=== PATIENT | female | born 1935 | race Caucasian/White ===

== ENCOUNTER 2018-04-11 14:24 | Inpatient (IN) | payer MEDICARE, BC ==
--- NOTE | 2018-04-11 15:21 | RAD ---
CHEST 1 VIEW: Date: 04/11/18 HISTORY: Cough. FINDINGS: No comparison. The cardiac silhouette is unremarkable. Pulmonary vasculature upper limits of normal. Patchy infiltra te projects over each lung base. Mediastinum midline. No evidence of pneumothorax. IMPRESSION: Patchy bibasilar infiltrates. Given the lack of pulmonary edema elsewhere, clinical correlation regar ding other signs and symptoms of bibasilar pneumonitis is required. Please consider close follow-up w ith upright PA and lateral views of the chest when patient can undergo that exam. POS: [facility]
[2018-04-11 15:23] LABS: Hemoglobin 14.7 g/dL (12.0-16.0); Mean Corpuscular HGB CONC 32.9 g/dL (32.0-36.0); Mean Corpuscular Hemoglobin 31.9 pg (27.0-31.0); Mean Platelet Volume 7.9 fL (7.4-10.4); Platelet Count 287 thou/uL (130-400); RBC Distribution Width 12.4 % (11.5-14.5); White Blood Cell (WBC) Count 15.5 thou/uL (4.8-10.8)
[2018-04-11 15:40] LABS: CKMB 0.6 ng/mL (0-6.6)
[2018-04-11 15:42] LABS: Band 11 % (5-11); Lymphocytes 26 % (21-51); MDiff Complete? YES; Monocytes 3 % (0-10); Neutrophil 60 % (42-75); PLT Morphology Comment Appears Adequate
[2018-04-11 15:55] LABS: ALT (SGPT) 25 U/L (8-55); AST (SGOT) 39 U/L (5-34); Albumin 3.5 g/dL (3.4-4.8); Alkaline Phosphatase 97 U/L (40-150); Anion Gap 14 mmol/L (10-20); BUN (Urea Nitrogen) 24 mg/dL (9.8-20.1); Bilirubin, Total 1.1 mg/dL (0.2-1.2); CK (CPK) 28 U/L (29-168); Calc. Creatinine Clearance 0 mL/min (70-130); Calcium 9.7 mg/dL (7.8-10.44); Carbon Dioxide 22 mmol/L (23-31); Chloride 95 mmol/L (98-107); Estimated GFR-MDRD 46; Globulin 4.1 g/dL (2.4-3.5); Glucose 141 mg/dL (83-110); Potassium 5.4 mmol/L (3.5-5.1); Protein, Total 7.6 g/dL (6.0-8.3); Sodium 126 mmol/L (136-145)
[2018-04-11] MEDS ORDERED: Sodium Chloride 0.9% 1,000 ML IV SCH (20:15)
[2018-04-11 20:41] VITALS: BMI 31.1
[2018-04-11] MEDS ORDERED: Acetaminophen 650 MG Suppository PR PRN (20:41)
[2018-04-11] MEDS ORDERED: Ondansetron ODT 4 MG TAB PO PRN (20:41)
[2018-04-11] MEDS ORDERED: Ondansetron HCl/PF 4 MG/2 ML Vial IVP PRN (20:41)
[2018-04-11] MEDS ORDERED: Bisacodyl 5 MG TAB PO PRN (20:41)
[2018-04-11] MEDS: levETIRAcetam 500 MG TAB PO SCH (21:38)
[2018-04-11] MEDS: Docusate 100 MG CAP PO SCH (21:38)
[2018-04-11] MEDS: Acetaminophen 325 MG TAB PO PRN (21:38)
[2018-04-11] MEDS: Apixaban 5 MG TAB PO SCH (21:38)
[2018-04-11] MEDS: Sodium Chloride 0.9% 1,000 ML IV SCH (21:39)
--- NOTE | 2018-04-11 22:46 | HP ---
PRIMARY CARE PHYSICIAN: Anastacio Flynn MD CHIEF COMPLAINT: Cough and weakness. HISTORY OF PRESENT ILLNESS: This is an 82-year-old white female who lives at she [facility], who reports that she has been feeling bad for the last 4-5 days. She initially had some mild shortness of breath onset followed by cough and just feeling bad overall. Cough has been progressiv e and now productive of yellow sputum. She had worsening fatigue and some generalized body aching. The patient eventually presented to the emergency room. In the ER, she was found to be tachycardic u p to 120 with an O2 sat of 92% on room air. The patient improved with oxygen. She had a chest x-ray done, which showed bilateral bibasilar infiltrates. She was also found to be tachypneic. The patie nt did get fluid bolus of 30 mL per kilogram in the emergency room along with Levaquin and oxygen and is feeling better. Heart rate is now down to about 100. She is being admitted for [facility] pneumonia. PAST MEDICAL HISTORY: History taken from the patient; however, she cannot completely remember all of her medical problems. So, I am taking information from her medication list from [facility] as well. 1. Atrial fibrillation, likely chronic, though the patient does not remember this one, since she is on Eliquis. 2. Hypertension. 3. Hypothyroidism. 4. Benign brain tumor, status post resection, on chronic antiepileptics. 5. Stroke quite a few years ago. No longer ambulatory. PAST SURGICAL HISTORY: 1. Benign brain tumor resection. 2. x2. 3. Partial hysterectomy. 4. Tonsillectomy. 5. Appendectomy. 6. Cholecystectomy. SOCIAL HISTORY: The patient denies tobacco, alcohol, or illicit drug use. She lives at [facility]. She has 2 daughters and a son. Her son lives in town and is her medical power of assistant attorney general. His name is Carlton Pham. ALLERGIES: 1. PENICILLIN. 2. SULFA. 3. MACROBID. 4. DECLOMYCIN. 5. CODEINE SULFATE. CURRENT MEDICATIONS: 1. Acidophilus 2 caps daily. 2. Allyn 180 mg daily. 3. Cranberry 450 mg daily. 4. Diphenhydramine 25 mg at night as needed for sleep. 5. Dulcolax suppository 10 mg as needed. 6. Eliquis 5 mg twice a day. 7. Flonase 2 sprays in each nostril daily. 8. Imodium A-D 2 mg as needed for diarrhea. 9. Keppra 500 mg twice a day. 10. Lisinopril 10 mg daily. 11. Melatonin 3 mg daily. 12. Metoprolol tartrate 25 mg twice a day. 13. Sodium chloride 1 gram orally daily. 14. Synthroid 100 mcg daily. 15. Timolol 1 drop in each eye 2 times a day. 16. Tramadol 50 mg 3 times a day as needed. 17. Travatan 1 drop in each eye daily. REVIEW OF SYSTEMS: Constitutional: She has had some chills. No fever. Eyes: No double vision or blurred vision. ENT: No congestion, drainage. She has a mild sore throat. Cardiovascular: No aundrea st pain. No palpitations or racing heart. Pulmonary: See HPI. Gastrointestinal: No abdominal moose n. She had nausea and vomiting once during breakfast, but none since. No diarrhea or constipation. Genitourinary: The patient is chronically incontinent of urine. No changes in her urinary habit. No dysuria or hematuria. Musculoskeletal: She has some generalized muscle aches, especially since l arnold in the bed in the emergency room, but otherwise no focal problems. Skin: No rashes or other le sions she has noted. Neurologic: No numbness, tingling, or focal weakness. PHYSICAL EXAMINATION: VITAL SIGNS: Blood pressure 114/66, pulse 100, respiratory rate 28, temperature 98.4, O2 sat 95% on 2 liters. GENERAL: This is a well-developed, obese, white female in no acute distress on oxygen. She does not look to be breathing 28 breaths per minute to me, more about 22. HEENT: Pupils equal, round, and reactive to light. Oropharynx is clear without lesions, erythema, o r exudate. NECK: Supple. No lymphadenopathy. No thyroid nodules or enlargement. No JVD. HEART: Regular rate and rhythm. No murmurs, rubs, or gallops. LUNGS: She has some coarse breath sounds and few crackles in bilateral bases with decent air movemen t throughout. ABDOMEN: Soft, nontender to palpation. Normoactive bowel sounds. No hepatosplenomegaly or other ma sses. EXTREMITIES: No clubbing, cyanosis, or edema. She does have some deformity of the ankles, little bi t of foot drop, it looks like, consistent with a history of not having ambulated for quite some time. PSYCHIATRIC: Alert and oriented x3. Normal mood and affect. LABORATORY DATA: CBC with a white blood cell count of 15,000 and the rest is normal. Complete metab olic panel notable for sodium of 126, potassium of 5.4, carbon dioxide of 22 with a normal anion gap. BUN of 24; creatinine of 1.14, which is up from 0.79 in December of this year. Glucose of 141. La ctic acid was negative at 1.3. AST was 39. Creatinine kinase was low at 28. The rest was normal in the complete metabolic panel. Brain natriuretic peptide is normal at 75. Cardiac marker set negati ve x1. Chest x-ray: I did review the chest x-ray done in the emergency room along with the radiologist's re port. This does show some patchy bibasilar infiltrates consistent with bibasilar pneumonitis. No ot her significant abnormalities. EKG: I did review the EKG done in the emergency room. It does show sinus tachycardia with some abnormality of the P waves, but no atrial fibrillation on my read. ASSESSMENT AND PLAN: 1. Community-acquired pneumonia. The patient has got Levaquin in the emergency room along with IV f luids. We will continue these in the hospital and give fluids and nebs along with oxygen. 2. Sepsis without any evidence of severe organ dysfunction. I am treating with fluids and we will m onitor her on telemetry. 3. Possible history of atrial fibrillation. We will continue Eliquis and put her on telemetry. 4. Hypertension. Resume home medications. 5. Acute renal failure, likely prerenal. It should resolve with fluids and not bad enough that we n eed to stop her ÓSCAR inhibitor at this time. 6. Gastrointestinal prophylaxis. Put the patient on Pepcid twice a day. 7. Deep venous thrombosis prophylaxis. Continue the patient's Eliquis. 8. Code status: I discussed with the patient. She states that she is currently FULL CODE, but she would want people to try too long to re-live her; and her medical decision maker is her son, Carlton Pham.
[2018-04-12] MEDS ORDERED: Levothyroxine Sodium 100 MCG TAB PO SCH (06:00)
[2018-04-12] MEDS: Sodium Chloride 0.9% 1,000 ML IV SCH ×2 (06:32→15:37)
[2018-04-12 07:55] LABS: #Eosinphils 0.1 thou/uL (0.0-0.7); #Lymphocytes 1.8 thou/uL (1.20-3.40); #Monocytes 1.4 thou/uL (0.11-0.59); #Neutrophils 11.2 thou/uL (1.40-6.50); %Basophils 0.1 % (0.0-1.0); %Eosinophils 0.9 % (0.0-10.0); %Lymphocytes 12.6 % (21.0-51.0); %Monocytes 9.7 % (0.0-10.0); %Neutrophils 76.8 % (42.0-75.0); Mean Corpuscular HGB CONC 32.7 g/dL (32.0-36.0); Mean Corpuscular Hemoglobin 32.5 pg (27.0-31.0); Mean Corpuscular Volume 99.2 fl (81.0-99.0); Mean Platelet Volume 7.9 fL (7.4-10.4); Platelet Count 262 thou/uL (130-400); RBC Distribution Width 12.3 % (11.5-14.5); Red Blood Cell (RBC) Count 4.29 mill/uL (4.20-5.40); White Blood Cell (WBC) Count 14.6 thou/uL (4.8-10.8)
[2018-04-12 08:18] LABS: Anion Gap 14 mmol/L (10-20); BUN (Urea Nitrogen) 15 mg/dL (9.8-20.1); Calc. Creatinine Clearance 72 mL/min (70-130); Carbon Dioxide 21 mmol/L (23-31); Chloride 102 mmol/L (98-107); Estimated GFR-MDRD 67; Glucose 104 mg/dL (83-110); Sodium 133 mmol/L (136-145)
[2018-04-12] MEDS ORDERED: Famotidine 20 MG TAB PO SCH (09:00)
[2018-04-12] MEDS: Sodium Chloride 1 GM TAB PO SCH (09:00)
[2018-04-12] MEDS: Docusate 100 MG CAP PO SCH ×2 (09:00→21:37)
[2018-04-12] MEDS: Fluticasone Propionate Nasal Spray 16 gm Bottle NASAL SCH (09:00)
[2018-04-12] MEDS ORDERED: Prevnar 13-Val Conj/PF 0.5 ML SYRINGE IM ONE (09:00)
[2018-04-12] MEDS: Apixaban 5 MG TAB PO SCH ×2 (09:00→21:28)
[2018-04-12] MEDS: levETIRAcetam 500 MG TAB PO SCH ×2 (09:00→21:29)
--- NOTE | 2018-04-12 09:52 | PDOC.PN ---
- Subjective Encounter Start Date: 04/12/18 Encounter Start Time: 09:49 Subjective: miserable, cough, sob, weak - Objective Resuscitation Status: Resuscitation Status FULL:Full Resuscitation MAR Reviewed: Yes Vital Signs & Weight: Vital Signs (12 hours) Temp Pulse Resp BP Pulse Ox 04/12/18 04:17 94 L 04/12/18 04:00 97.9 F 116 H 22 H 141/64 H 94 L 04/11/18 23:30 98.8 F 88 24 H 108/54 L 94 L 04/11/18 23:00 95 Weight Weight 194 lb 3.2 oz I&O: 04/11/18 04/12/18 04/13/18 06:59 06:59 06:59 Intake Total 1670 Balance 1670 Result Diagrams: 04/12/18 07:42 04/12/18 07:42 Phys Exam - Physical Examination Neck: no JVD rhonchi ant, rales bilateral post lower lung avila Cardiovascular: RRR, no significant murmur Gastrointestinal: soft, positive bowel sounds Musculoskeletal: no edema, pulses present Dx/Plan (1) PNA (pneumonia) Code(s): J18.9 - PNEUMONIA, UNSPECIFIED ORGANISM Status: Acute Qualifiers: Pneumonia type: due to unspecified organism Laterality: bilateral Lung location: lower lobe of lung Qualified Code(s): J18.1 - Lobar pneumonia, unspecified organism (2) Acute respiratory failure with hypoxia Code(s): J96.01 - ACUTE RESPIRATORY FAILURE WITH HYPOXIA Status: Acute (3) Atrial fibrillation with tachycardic ventricular rate Code(s): I48.91 - UNSPECIFIED ATRIAL FIBRILLATION Status: Acute (4) Anticoagulant long-term use Code(s): Z79.01 - LITERATURE PROFESSOR (CURRENT) USE OF ANTICOAGULANTS Status: Chronic (5) HTN (hypertension) Code(s): I10 - ESSENTIAL (PRIMARY) HYPERTENSION Status: Chronic Qualifiers: Hypertension type: essential hypertension Qualified Code(s): I10 - Essential (primary) hypertension (6) Hyponatremia Code(s): E87.1 - HYPO-OSMOLALITY AND HYPONATREMIA Status: Acute (7) Acute renal failure Status: Acute Qualifiers: Acute renal failure type: unspecified Qualified Code(s): N17.9 - Acute kidney failure, unspecified (8) Sepsis Code(s): A41.9 - SEPSIS, UNSPECIFIED ORGANISM Status: Acute Qualifiers: Sepsis type: sepsis due to unspecified organism Qualified Code(s): A41.9 - Sepsis, unspecified organism - Plan blood C&S pending, cont iv levaquin -: reinstitute B-yenifer for rate control -: monitor Na, Cretinine -: O2 to keep sat> 90 -: nebs prn * .
--- NOTE | 2018-04-12 17:43 | PDOC.EVN ---
Event Note - Event Note Event Note: DNR, discussed with patient and son
[2018-04-12] MEDS ORDERED: Cepastat Lozenges 1 LOZ PO PRN (20:50)
[2018-04-12] MEDS ORDERED: TIMOLOL MALEATE EA EYE SCH (21:00)
[2018-04-12] MEDS: guaiFENesin ER 600 MG TAB PO SCH (21:29)
[2018-04-12] MEDS: Metoprolol Tartrate 25 MG TAB PO SCH (21:29)
[2018-04-12] MEDS: Diabetic Tussin 200 MG/10 ML UDCUP PO PRN (21:29)
[2018-04-12] MEDS: Timolol 0.5% Ophth Soln 5 ml Bottle EA EYE SCH (21:44)
[2018-04-13] MEDS: diphenhydrAMINE 25 MG CAP PO PRN ×2 (00:30→20:11)
[2018-04-13] MEDS: Diabetic Tussin 200 MG/10 ML UDCUP PO PRN ×2 (05:02→20:12)
[2018-04-13] MEDS: Sodium Chloride 0.9% 1,000 ML IV SCH ×2 (07:18→15:49)
[2018-04-13] MEDS ORDERED: LACTOBACILLUS ACIDOPHILUS PO SCH (09:00)
[2018-04-13] MEDS ORDERED: Lactinex Tablet PO SCH (09:00)
--- NOTE | 2018-04-13 09:21 | PDOC.PN ---
- Subjective Encounter Start Date: 04/13/18 Encounter Start Time: 09:20 Subjective: mild cough, minimal sob - Objective Resuscitation Status: Resuscitation Status DNR:Do Not Resuscitate MAR Reviewed: Yes Vital Signs & Weight: Vital Signs (12 hours) Temp Pulse Resp BP BP Pulse Ox 04/13/18 03:13 98.2 F 91 18 135/99 H 95 04/12/18 21:44 107 H 177/76 H Weight Weight 189 lb 14.4 oz I&O: 04/12/18 04/13/18 04/14/18 06:59 06:59 06:59 Intake Total 1670 3053 Balance 1670 3053 Result Diagrams: 04/12/18 07:42 04/12/18 07:42 Phys Exam - Physical Examination Neck: no JVD bilat post rales Cardiovascular: RRR, no significant murmur Gastrointestinal: soft, non-tender Musculoskeletal: no edema Dx/Plan (1) PNA (pneumonia) Code(s): J18.9 - PNEUMONIA, UNSPECIFIED ORGANISM Status: Acute Qualifiers: Pneumonia type: due to unspecified organism Laterality: bilateral Lung location: lower lobe of lung Qualified Code(s): J18.1 - Lobar pneumonia, unspecified organism (2) Acute respiratory failure with hypoxia Code(s): J96.01 - ACUTE RESPIRATORY FAILURE WITH HYPOXIA Status: Acute (3) Atrial fibrillation with tachycardic ventricular rate Code(s): I48.91 - UNSPECIFIED ATRIAL FIBRILLATION Status: Acute (4) Anticoagulant long-term use Code(s): Z79.01 - CORRECTION (CURRENT) USE OF ANTICOAGULANTS Status: Chronic (5) HTN (hypertension) Code(s): I10 - ESSENTIAL (PRIMARY) HYPERTENSION Status: Chronic Qualifiers: Hypertension type: essential hypertension Qualified Code(s): I10 - Essential (primary) hypertension (6) Hyponatremia Code(s): E87.1 - HYPO-OSMOLALITY AND HYPONATREMIA Status: Acute (7) Acute renal failure Status: Acute Qualifiers: Acute renal failure type: unspecified Qualified Code(s): N17.9 - Acute kidney failure, unspecified (8) Sepsis Code(s): A41.9 - SEPSIS, UNSPECIFIED ORGANISM Status: Acute Qualifiers: Sepsis type: sepsis due to unspecified organism Qualified Code(s): A41.9 - Sepsis, unspecified organism - Plan C&S neg to date, cont iv antibs -: cont O2 , resp tx -: cont eliquis , metoprolol fo r AF * .
[2018-04-13] MEDS: Floranex Packet PO SCH (09:33)
[2018-04-13] MEDS: Levothyroxine Sodium 100 MCG TAB PO SCH (09:33)
[2018-04-13] MEDS: Apixaban 5 MG TAB PO SCH ×2 (09:33→20:12)
[2018-04-13] MEDS: Sodium Chloride 1 GM TAB PO SCH (09:33)
[2018-04-13] MEDS: Famotidine 20 MG TAB PO SCH ×2 (09:33→20:12)
[2018-04-13] MEDS: Metoprolol Tartrate 25 MG TAB PO SCH ×2 (09:34→20:12)
[2018-04-13] MEDS: Docusate 100 MG CAP PO SCH ×2 (09:34→20:12)
[2018-04-13] MEDS: guaiFENesin ER 600 MG TAB PO SCH ×2 (09:34→20:12)
[2018-04-13] MEDS: Timolol 0.5% Ophth Soln 5 ml Bottle EA EYE SCH ×2 (09:34→20:12)
[2018-04-13] MEDS: Fluticasone Propionate Nasal Spray 16 gm Bottle NASAL SCH (09:34)
[2018-04-13] MEDS: levETIRAcetam 500 MG TAB PO SCH ×2 (09:34→20:12)
[2018-04-13] MEDS: Acetaminophen 325 MG TAB PO PRN (18:34)
[2018-04-13] MEDS: traMADol HCl 50 MG TAB PO PRN (22:39)
[2018-04-14] MEDS: Sodium Chloride 0.9% 1,000 ML IV SCH ×2 (03:46→13:14)
[2018-04-14 05:23] LABS: Hemoglobin 12.7 g/dL (12.0-16.0); Platelet Count 279 thou/uL (130-400)
--- NOTE | 2018-04-14 07:48 | PDOC.PN ---
- Subjective Encounter Start Date: 04/14/18 Encounter Start Time: 07:46 Subjective: coughing, sob - Objective Resuscitation Status: Resuscitation Status DNR:Do Not Resuscitate MAR Reviewed: Yes Vital Signs & Weight: Vital Signs (12 hours) Temp Pulse Resp BP BP Pulse Ox 04/14/18 03:48 97.9 F 81 19 151/68 H 93 L 04/13/18 20:12 97 146/77 H 04/13/18 20:11 98.5 F 97 22 H 94 L 04/13/18 19:55 98.5 F 97 20 146/77 H 94 L Weight Weight 197 lb 4.8 oz I&O: 04/13/18 04/14/18 04/15/18 06:59 06:59 06:59 Intake Total 3053 2881 Balance 3053 2881 Result Diagrams: 04/14/18 04:29 04/14/18 04:29 Radiology Reviewed by me: Yes (cxr-adverse, increased infiltrates, sherwin on L) Phys Exam - Physical Examination Neck: no JVD decreased BS, rales lower lungs Cardiovascular: irregular tachy Gastrointestinal: soft, positive bowel sounds Musculoskeletal: edema present Dx/Plan (1) PNA (pneumonia) Code(s): J18.9 - PNEUMONIA, UNSPECIFIED ORGANISM Status: Acute Qualifiers: Pneumonia type: due to unspecified organism Laterality: bilateral Lung location: lower lobe of lung Qualified Code(s): J18.1 - Lobar pneumonia, unspecified organism (2) Acute respiratory failure with hypoxia Code(s): J96.01 - ACUTE RESPIRATORY FAILURE WITH HYPOXIA Status: Acute (3) Atrial fibrillation with tachycardic ventricular rate Code(s): I48.91 - UNSPECIFIED ATRIAL FIBRILLATION Status: Acute (4) Anticoagulant long-term use Code(s): Z79.01 - RESPITE PROVIDER (CURRENT) USE OF ANTICOAGULANTS Status: Chronic (5) HTN (hypertension) Code(s): I10 - ESSENTIAL (PRIMARY) HYPERTENSION Status: Chronic Qualifiers: Hypertension type: essential hypertension Qualified Code(s): I10 - Essential (primary) hypertension (6) Hyponatremia Code(s): E87.1 - HYPO-OSMOLALITY AND HYPONATREMIA Status: Acute (7) Acute renal failure Status: Acute Qualifiers: Acute renal failure type: unspecified Qualified Code(s): N17.9 - Acute kidney failure, unspecified (8) Sepsis Code(s): A41.9 - SEPSIS, UNSPECIFIED ORGANISM Status: Acute Qualifiers: Sepsis type: sepsis due to unspecified organism Qualified Code(s): A41.9 - Sepsis, unspecified organism - Plan discussed with pulmonology -: add meropenem -: ABG * .
--- NOTE | 2018-04-14 08:49 | RAD ---
PORTABLE CHEST ONE VIEW: Date: 04-14-18 Time: 7:15 a.m. History: Pneumonia, shortness of breath. FINDINGS: Comparison is made with exam of 04-11-18. FINDINGS: Heart size is normal. There has been interval worsening or patchy bibasilar infiltrates. A small left pleural effusion is also seen. Infiltrates are also seen in the left midlung. No pneumothoraces are seen. IMPRESSION: Interval worsening of pneumonia since 04-11-18. POS: [facility]
[2018-04-14] MEDS: Levothyroxine Sodium 100 MCG TAB PO SCH (09:51)
[2018-04-14] MEDS: Timolol 0.5% Ophth Soln 5 ml Bottle EA EYE SCH ×2 (09:51→21:13)
[2018-04-14] MEDS: Fluticasone Propionate Nasal Spray 16 gm Bottle NASAL SCH (09:51)
[2018-04-14] MEDS: Famotidine 20 MG TAB PO SCH ×2 (09:52→21:12)
[2018-04-14] MEDS: guaiFENesin ER 600 MG TAB PO SCH ×2 (09:52→21:12)
[2018-04-14] MEDS: Sodium Chloride 1 GM TAB PO SCH (09:52)
[2018-04-14] MEDS: Apixaban 5 MG TAB PO SCH ×2 (09:52→21:11)
[2018-04-14] MEDS: Floranex Packet PO SCH (09:53)
[2018-04-14] MEDS: levETIRAcetam 500 MG TAB PO SCH ×2 (09:53→21:12)
[2018-04-14] MEDS: Docusate 100 MG CAP PO SCH ×2 (09:53→21:12)
[2018-04-14] MEDS: Metoprolol Tartrate 25 MG TAB PO SCH ×2 (10:02→21:12)
[2018-04-14 10:05] LABS: Band 21 % (5-11); Eosinophils 1 % (0-10); Hemoglobin 13.8 g/dL (12.0-16.0); Lymphocytes 14 % (21-51); MDiff Complete? YES; Mean Corpuscular HGB CONC 30.1 g/dL (32.0-36.0); Mean Corpuscular Hemoglobin 30.4 pg (27.0-31.0); Monocytes 7 % (0-10); Neutrophil 56 % (42-75); Platelet Count 282 thou/uL (130-400); RBC Distribution Width 12.6 % (11.5-14.5); RBC Morphology Normal; Reactive Lymphocytes 1 % (0-10); Red Blood Cell (RBC) Count 4.52 mill/uL (4.20-5.40); White Blood Cell (WBC) Count 18.3 thou/uL (4.8-10.8)
[2018-04-14 10:39] LABS: CO2 Tension 48.2 mmHg (35.0-45.0); O2 Tension (PaO2) 55.7 mmHg (80.0-100.0); pH, Arterial 7.34 (7.35-7.45)
[2018-04-14 10:40] LABS: Actual Bicarbonate (HCO3a) 25.6 mEq/L (22-26); Analyzer IN Cardio OR; Base Excess (BEa) -0.6 mEq/L (0 (+/-) 2.5); Calcium, Ionized 1.2 mmol/L (1.12-1.30); Hematocrit-ABG 47.1 % (36.0-47.0); Hemoglobin (Hb) 13.3 g/dL (12.0-16.0)
[2018-04-14 10:41] LABS: Puncture Site LRA
[2018-04-14] MEDS ORDERED: Furosemide 20 MG/2 ML VIAL IVP SCH (11:30)
[2018-04-14 12:23] LABS: Anion Gap 11 mmol/L (10-20); BUN (Urea Nitrogen) 6 mg/dL (9.8-20.1); Calc. Creatinine Clearance 87 mL/min (70-130); Calcium 8.9 mg/dL (7.8-10.44); Carbon Dioxide 27 mmol/L (23-31); Chloride 97 mmol/L (98-107); Estimated GFR-MDRD 81; Glucose 137 mg/dL (83-110); Potassium 3.9 mmol/L (3.5-5.1); Sodium 131 mmol/L (136-145)
[2018-04-14] MEDS: Nystatin 500,000 UNITS/5 ML UDCUP SSW SCH ×3 (13:23→21:12)
[2018-04-14] MEDS: Vancomycin HCl 1.25 GM in Sodium Chloride 0.9% 250 ML 250 ML IVPB SCH (14:26)
[2018-04-14] MEDS: Meropenem 1 GM in Sodium Chloride 0.9% 100 ML IVPB SCH ×2 (16:45→22:35)
--- NOTE | 2018-04-14 17:13 | CON ---
DATE OF SERVICE: 04/14/2018 Seventy minutes time was spent on this consultation at that time, greater than 50% was spent with the patient -- or on the patient's unit. CONSULTING PHYSICIAN: Dr. Gadiel Diane. REASON FOR CONSULTATION: Pneumonia. HISTORY OF PRESENT ILLNESS: The patient is an 82-year-old female who was initially hospitalized here on 04/11/2018. She says she became ill while at a [employer] last Tuesday. She came home and coughed u p for a few days, but eventually had to come to the hospital. She was having shortness of breath, co ugh, and congestion. She was initially placed on Levaquin. She has an x-ray today showing worsening findings. The patient states that she does not feel much different from when she was originally adm itted. She denies any previous history of lung issues. She has been in atrial flutter most of this admissio n, but I do not see any other medical history in terms of heart other than chronic atrial fibrillatio n. PAST MEDICAL HISTORY: 1. Chronic atrial fibrillation. 2. Hypertension. 3. Hypothyroidism. 4. Benign brain tumor, requiring resection. 5. 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 6. History of stroke. PAST SURGICAL HISTORY: 1. Brain tumor resections. 2. . 3. Hysterectomy. 4. Tonsillectomy. 5. Appendectomy. 5. Cholecystectomy. SOCIAL HISTORY: She quit smoking around age 49 after smoking a pack per day prior to that. She is [facility] from [place]. She lives here for a while. Retired back to [place] and just moved back here several months ago. She lives over at [facility]. Her son lives in town. ALLERGIES: PENICILLIN, SULFA, MACROBID, DAPTOMYCIN and CODEINE. MEDICATIONS PRIOR TO ADMISSION: Acidophilus, Allyn, cranberry, diphenhydramine, Dulcolax, Eliquis, Flonase, Imodium, Keppra, lisinopril, melatonin, metoprolol, sodium chloride, Synthroid, tramadol, a nd pravastatin. REVIEW OF SYSTEMS: She complains of a dry sore mouth. She complains of shortness of breath. She co mplains of pain in her legs. Otherwise, 12 point review of systems negative. PHYSICAL EXAMINATION: VITAL SIGNS: Temperature 97.7, pulse 88, respirations 20, O2 sat is 94% on 2 liters, blood pressure 175/82. GENERAL: The patient appears acutely ill. She is very congested and has a productive cough. HEENT: Pupils react. Sclerae anicteric. Oropharynx clear. NECK: No adenopathy, JVD, or bruits. LUNGS: She has inspiratory squeaks with crackles at both bases. CARDIOVASCULAR: S1, S2, slightly tachycardic without murmur. ABDOMEN: Soft, nontender, nondistended. EXTREMITIES: No clubbing, cyanosis, or edema. NEUROLOGIC: Grossly intact throughout. LAB AND X-RAY FINDINGS: Sodium 133, potassium 4, chloride 102, CO2 of 21, BUN 15, creatinine 0.8, gl ucose 104, troponin 0.01, pH of 7.34, pCO2 of 48, pO2 of 55 that is on 28% nasal cannula. White blo od count 18, hematocrit 45.8, platelet count 282, 56% neutrophils, 21% bands. ASSESSMENT: The patient has bilateral pneumonia, worse on the left than the right with the worsening of her x-ray. This may be a reflection of volume status more than an indication of refractory pneum onia. She has been receiving normal saline 100 mL per hour since admission and does have chronic atr ial flutter. RECOMMENDATIONS: 1. Stop the IV fluids. 2. One small dose of Lasix 20 mg. 3. I would go ahead and extend her antibiotic spectrum. Continue Levaquin, but also add meropenem a nd vancomycin. 4. Add nystatin for probable thrush in her throat. 5. Recheck her labs tomorrow. 6. Add low dose steroids.
[2018-04-15 05:26] LABS: Anion Gap 12 mmol/L (10-20); BUN (Urea Nitrogen) 10 mg/dL (9.8-20.1); Calc. Creatinine Clearance 82 mL/min (70-130); Calcium 9.1 mg/dL (7.8-10.44); Carbon Dioxide 29 mmol/L (23-31); Chloride 96 mmol/L (98-107); Estimated GFR-MDRD 76; Glucose 153 mg/dL (83-110); Potassium 4.1 mmol/L (3.5-5.1); Sodium 133 mmol/L (136-145)
[2018-04-15 05:58] LABS: Band 18 % (5-11); Lymphocytes 7 % (21-51); MDiff Complete? YES; Mean Corpuscular HGB CONC 32.4 g/dL (32.0-36.0); Mean Corpuscular Hemoglobin 31.7 pg (27.0-31.0); Mean Corpuscular Volume 97.9 fl (81.0-99.0); Mean Platelet Volume 7.2 fL (7.4-10.4); Metamyelocyte 1 % (0-0); Monocytes 7 % (0-10); Neutrophil 67 % (42-75); Nucleated RBC 1 % (0); PLT Morphology Comment Appears Adequate; Platelet Count 317 thou/uL (130-400); RBC Distribution Width 12.4 % (11.5-14.5); White Blood Cell (WBC) Count 11.2 thou/uL (4.8-10.8)
[2018-04-15] MEDS: Meropenem 1 GM in Sodium Chloride 0.9% 100 ML IVPB SCH ×2 (06:01→13:01)
[2018-04-15] MEDS: Levothyroxine Sodium 100 MCG TAB PO SCH (08:26)
[2018-04-15] MEDS: Nystatin 500,000 UNITS/5 ML UDCUP SSW SCH ×4 (08:26→20:47)
[2018-04-15] MEDS: Floranex Packet PO SCH (08:26)
[2018-04-15] MEDS: Sodium Chloride 1 GM TAB PO SCH (08:26)
[2018-04-15] MEDS: Metoprolol Tartrate 25 MG TAB PO SCH ×2 (08:27→20:46)
[2018-04-15] MEDS: Apixaban 5 MG TAB PO SCH ×2 (08:27→20:46)
[2018-04-15] MEDS: guaiFENesin ER 600 MG TAB PO SCH ×2 (08:27→20:46)
[2018-04-15] MEDS: Fluticasone Propionate Nasal Spray 16 gm Bottle NASAL SCH (08:27)
[2018-04-15] MEDS: Docusate 100 MG CAP PO SCH ×2 (08:27→20:46)
[2018-04-15] MEDS: levETIRAcetam 500 MG TAB PO SCH ×2 (08:27→20:46)
[2018-04-15] MEDS: Famotidine 20 MG TAB PO SCH ×2 (08:27→20:46)
[2018-04-15] MEDS: Timolol 0.5% Ophth Soln 5 ml Bottle EA EYE SCH ×2 (08:28→20:47)
--- NOTE | 2018-04-15 08:34 | PDOC.PN ---
- Subjective Encounter Start Date: 04/15/18 Encounter Start Time: 08:33 Subjective: much more alert, mild cough - Objective Resuscitation Status: Resuscitation Status DNR:Do Not Resuscitate MAR Reviewed: Yes Vital Signs & Weight: Vital Signs (12 hours) Temp Pulse Resp BP BP Pulse Ox 04/15/18 07:40 94 L 04/15/18 07:34 96.9 F L 72 18 134/102 H 93 L 04/15/18 07:30 78 12 04/15/18 06:13 69 20 149/76 H 04/15/18 04:00 97.6 F 88 18 171/77 H 93 L 04/15/18 00:00 98.4 F 60 18 140/66 94 L 04/14/18 21:13 76 170/81 H Weight Weight 196 lb 12.8 oz I&O: 04/14/18 04/15/18 04/16/18 06:59 06:59 06:59 Intake Total 2881 342 Balance 2881 342 Result Diagrams: 04/15/18 04:31 04/15/18 04:31 EKG Reviewed by me: Yes (now in RSR) Phys Exam - Physical Examination Neck: no JVD post rales, L>R Cardiovascular: RRR, no significant murmur Gastrointestinal: soft, positive bowel sounds Musculoskeletal: edema present Dx/Plan (1) PNA (pneumonia) Code(s): J18.9 - PNEUMONIA, UNSPECIFIED ORGANISM Status: Acute Qualifiers: Pneumonia type: due to unspecified organism Laterality: bilateral Lung location: lower lobe of lung Qualified Code(s): J18.1 - Lobar pneumonia, unspecified organism (2) Acute respiratory failure with hypoxia Code(s): J96.01 - ACUTE RESPIRATORY FAILURE WITH HYPOXIA Status: Acute (3) Atrial fibrillation with tachycardic ventricular rate Code(s): I48.91 - UNSPECIFIED ATRIAL FIBRILLATION Status: Acute (4) Anticoagulant long-term use Code(s): Z79.01 - CARE HOME (CURRENT) USE OF ANTICOAGULANTS Status: Chronic (5) HTN (hypertension) Code(s): I10 - ESSENTIAL (PRIMARY) HYPERTENSION Status: Chronic Qualifiers: Hypertension type: essential hypertension Qualified Code(s): I10 - Essential (primary) hypertension (6) Hyponatremia Code(s): E87.1 - HYPO-OSMOLALITY AND HYPONATREMIA Status: Acute (7) Acute renal failure Status: Acute Qualifiers: Acute renal failure type: unspecified Qualified Code(s): N17.9 - Acute kidney failure, unspecified (8) Sepsis Code(s): A41.9 - SEPSIS, UNSPECIFIED ORGANISM Status: Acute Qualifiers: Sepsis type: sepsis due to unspecified organism Qualified Code(s): A41.9 - Sepsis, unspecified organism - Plan cont vanc/ meropem/levaquin -: rpt cxr -: ECHOCARDIAGRAM/ BNP * .
--- NOTE | 2018-04-15 10:39 | RAD ---
PORTABLE CHEST: Date: 04/15/18 COMPARISON: Prior day's study. HISTORY: Follow-up pneumonia. FINDINGS: Heart size within normal limits. Bibasilar lung changes are fairly similar to the prior exam. Some of the chest in the left mid to upper lung field have slightly improved. IMPRESSION: Fairly stable chest. Slight improvement to some of the changes of the left mid to upper lung field. POS: [facility]
[2018-04-15] MEDS: Vancomycin HCl 1.25 GM in Sodium Chloride 0.9% 250 ML 250 ML IVPB SCH (14:18)
--- NOTE | 2018-04-15 14:20 | PDOC.EVN ---
Event Note - Event Note Event Note: cxr demonstrates significant clearing. BNP about 200. echo pending
--- NOTE | 2018-04-15 15:21 | EKG ---
Test Reason : Blood Pressure : / mmHG Vent. Rate : 107 BPM Atrial Rate : 119 BPM P-R Int : 168 ms QRS Dur : 072 ms QT Int : 310 ms P-R-T Axes : 043 -58 057 degrees QTc Int : 413 ms Sinus tachycardia Left anterior fascicular block Inferior infarct , age undetermined Abnormal ECG Confirmed by PARISA MORENO, KAYLA Gaines ([id number]), film editor CLAUS MODI ([id number]) on 04/15/2018 3:21:11 PM Referred By: Confirmed By:KAYLA MCCAULEY MD
--- NOTE | 2018-04-15 17:11 | PRG ---
DATE OF SERVICE: 04/15/2018 SUBJECTIVE: The patient is doing reasonably well. She has trouble remembering things even from yest erday. PHYSICAL EXAMINATION: VITAL SIGNS: Temperature 97.9, pulse 78, respiration rate 16, O2 saturation 93%, blood pressure 113/ 57. HEENT: Unremarkable. NECK: No JVD. LUNGS: Fairly clear. CARDIOVASCULAR: S1 and S2, regular. ABDOMEN: Soft. EXTREMITIES: No edema. LABORATORY DATA: White blood cell count 11.2, hematocrit 43, platelet count 317. Sodium 133, potass ium 4.1, chloride 96, CO2 of 29, BUN 10, creatinine 0.7, glucose 153. BNP level was 205. Chest x-ray demonstrates some haziness in the left base. Overall, no acute changes. ASSESSMENT: Left lower lobe pneumonia. PLAN: Continue antibiotics. Continue treatment for thrush. Continue low-dose steroids.
[2018-04-15] MEDS: diphenhydrAMINE 25 MG CAP PO PRN (20:46)
[2018-04-15] MEDS: MEROPENEM 1 GM/50 ML 1 GM in Premix Bag 1 BAG IVPB SCH (21:01)
[2018-04-16] MEDS: Diabetic Tussin 200 MG/10 ML UDCUP PO PRN ×2 (02:59→22:46)
[2018-04-16 05:45] LABS: Hemoglobin 12.5 g/dL (12.0-16.0); Platelet Count 375 thou/uL (130-400)
[2018-04-16] MEDS: MEROPENEM 1 GM/50 ML 1 GM in Premix Bag 1 BAG IVPB SCH ×3 (06:03→21:10)
[2018-04-16] MEDS: Timolol 0.5% Ophth Soln 5 ml Bottle EA EYE SCH ×2 (08:47→21:08)
[2018-04-16] MEDS: Fluticasone Propionate Nasal Spray 16 gm Bottle NASAL SCH (08:47)
[2018-04-16] MEDS: Sodium Chloride 1 GM TAB PO SCH (08:49)
[2018-04-16] MEDS: Apixaban 5 MG TAB PO SCH ×2 (08:49→21:08)
[2018-04-16] MEDS: Metoprolol Tartrate 25 MG TAB PO SCH ×2 (08:49→21:08)
[2018-04-16] MEDS: Docusate 100 MG CAP PO SCH ×2 (08:49→21:08)
[2018-04-16] MEDS: Levothyroxine Sodium 100 MCG TAB PO SCH (08:49)
[2018-04-16] MEDS: Floranex Packet PO SCH (08:49)
[2018-04-16] MEDS: Nystatin 500,000 UNITS/5 ML UDCUP SSW SCH ×4 (08:49→21:08)
[2018-04-16] MEDS: levETIRAcetam 500 MG TAB PO SCH ×2 (08:49→21:08)
[2018-04-16] MEDS: guaiFENesin ER 600 MG TAB PO SCH ×2 (08:49→21:08)
[2018-04-16] MEDS: Famotidine 20 MG TAB PO SCH ×2 (08:50→21:08)
--- NOTE | 2018-04-16 11:24 | PDOC.PN ---
- Subjective Encounter Start Date: 04/16/18 Encounter Start Time: 11:05 -: old records requested/rev Pt seen and examined chart reviewed in its entirety, this is my first visit with this patient. pt complains mainly of weakness. Cough is less, less SOB, but feesl weak. No F/c, no n/V/D/c, no CP, some SOB with exertion. Pt is non-ambulatory. gets around in a wheelchair, lives at an assisted living facility. all systems reviewed and neg x as pr HPI - Objective Resuscitation Status: Resuscitation Status DNR:Do Not Resuscitate MAR Reviewed: Yes Vital Signs & Weight: Vital Signs (12 hours) Temp Pulse Resp BP Pulse Ox 04/16/18 08:56 91 16 04/16/18 08:47 74 04/16/18 08:30 94 L 04/16/18 08:00 97 F L 84 18 160/73 H 93 L 04/16/18 04:00 98.1 F 74 20 154/67 H 97 04/16/18 00:00 72 20 94 L Weight Weight 197 lb 9.6 oz I&O: 04/15/18 04/16/18 04/17/18 06:59 06:59 06:59 Intake Total 342 1701 Balance 342 1701 Result Diagrams: 04/16/18 05:36 04/16/18 05:36 Radiology Reviewed by me: Yes EKG Reviewed by me: Yes Phys Exam - Physical Examination Constitutional: NAD HEENT: PERRLA, moist MMs, sclera anicteric, oral pharynx no lesions Neck: no nodes, no JVD, supple, full ROM Respiratory: no wheezing, no rales, no rhonchi, clear to auscultation bilateral Cardiovascular: RRR, no significant murmur, no rub Gastrointestinal: soft, non-tender, no distention, positive bowel sounds Musculoskeletal: pulses present, edema present trace pedal edema Neurological: non-focal, normal sensation, moves all 4 limbs Lymphatic: no nodes Psychiatric: normal affect, A&O x 3 Deviation from normal: seems normal most of the time, occasionally forgot she was inpatient Skin: no rash, normal turgor, cap refill <2 seconds Dx/Plan (1) CAP (community acquired pneumonia) Code(s): J18.9 - PNEUMONIA, UNSPECIFIED ORGANISM Status: Acute Qualifiers: Laterality: right Lung location: lower lobe of lung Qualified Code(s): J18.1 - Lobar pneumonia, unspecified organism Comment: present on admission, improving, on levoflox, continue. pulm following (2) Acute renal failure Status: Resolved Qualifiers: Acute renal failure type: unspecified Qualified Code(s): N17.9 - Acute kidney failure, unspecified Comment: resolved (3) Acute respiratory failure with hypoxia Code(s): J96.01 - ACUTE RESPIRATORY FAILURE WITH HYPOXIA Status: Acute Comment: wean O2 as tolerated (4) Atrial fibrillation with tachycardic ventricular rate Code(s): I48.91 - UNSPECIFIED ATRIAL FIBRILLATION Status: Acute (5) Hyponatremia Code(s): E87.1 - HYPO-OSMOLALITY AND HYPONATREMIA Status: Resolved (6) Sepsis Code(s): A41.9 - SEPSIS, UNSPECIFIED ORGANISM Status: Resolved Qualifiers: Sepsis type: sepsis due to unspecified organism Qualified Code(s): A41.9 - Sepsis, unspecified organism Comment: present on admit (7) Anticoagulant long-term use Code(s): Z79.01 - [facility] (CURRENT) USE OF ANTICOAGULANTS Status: Chronic (8) HTN (hypertension) Code(s): I10 - ESSENTIAL (PRIMARY) HYPERTENSION Status: Chronic Qualifiers: Hypertension type: essential hypertension Qualified Code(s): I10 - Essential (primary) hypertension (9) Physical deconditioning Code(s): R53.81 - OTHER MALAISE Status: Acute Comment: PT/OT. will need SNF - Plan cont current plan of care, continue antibiotics, PT/OT, respiratory therapy * .
--- NOTE | 2018-04-16 13:28 | PRG ---
DATE OF SERVICE: 04/16/2018. SUBJECTIVE: The patient says she feels better than yesterday. PHYSICAL EXAMINATION: VITAL SIGNS: Temperature 97.9, pulse 86, respiration 16, O2 sat 94% on 2 liters, blood pressure 146/ 67. HEENT: Unremarkable. NECK: No JVD. CHEST: Fairly clear compared to previous days. CARDIAC: S1 and S2 regular. ABDOMEN: Soft. EXTREMITIES: No edema. LABORATORY DATA: Creatinine 0.8, hemoglobin 12.5, platelet count 375. ASSESSMENT: Pneumonitis versus congestive heart failure. She seems to be better with her antibiotic treatment as well as some diuresis. PLAN: Continue IV antibiotics. She is minimally active, so I am not sure how much physical therapy can help us with the patient. I will go ahead and back off her steroids.
[2018-04-16 13:41] LABS: Vancomycin, Trough 7.7 ug/mL
[2018-04-16] MEDS: Vancomycin HCl 1.25 GM in Sodium Chloride 0.9% 250 ML 250 ML IVPB SCH (14:03)
[2018-04-16] MEDS ORDERED: Vancomycin HCl 500 MG in Sodium Chloride 0.9% 100 ML IVPB SCH (14:30)
[2018-04-16] MEDS: diphenhydrAMINE 25 MG CAP PO PRN (22:46)
[2018-04-16] MEDS: Acetaminophen 325 MG TAB PO PRN (22:46)
[2018-04-17 05:30] LABS: Band 8 % (5-11); Hemoglobin 12.1 g/dL (12.0-16.0); Lymphocytes 19 % (21-51); MDiff Complete? YES; Mean Corpuscular HGB CONC 31.7 g/dL (32.0-36.0); Mean Corpuscular Hemoglobin 30.4 pg (27.0-31.0); Mean Corpuscular Volume 95.9 fl (81.0-99.0); Mean Platelet Volume 7.2 fL (7.4-10.4); Metamyelocyte 4 % (0-0); Monocytes 6 % (0-10); Neutrophil 63 % (42-75); PLT Morphology Comment Appears Adequate; Platelet Count 372 thou/uL (130-400); RBC Distribution Width 12.4 % (11.5-14.5); Red Blood Cell (RBC) Count 3.97 mill/uL (4.20-5.40); White Blood Cell (WBC) Count 14.9 thou/uL (4.8-10.8)
[2018-04-17 05:34] LABS: Anion Gap 10 mmol/L (10-20); BUN (Urea Nitrogen) 26 mg/dL (9.8-20.1); Calc. Creatinine Clearance 69 mL/min (70-130); Calcium 8.5 mg/dL (7.8-10.44); Carbon Dioxide 28 mmol/L (23-31); Chloride 100 mmol/L (98-107); Estimated GFR-MDRD 61; Glucose 141 mg/dL (83-110); Magnesium 2.2 mg/dL (1.6-2.6); Sodium 134 mmol/L (136-145)
[2018-04-17] MEDS: MEROPENEM 1 GM/50 ML 1 GM in Premix Bag 1 BAG IVPB SCH (05:34)
[2018-04-17] MEDS: Fluticasone Propionate Nasal Spray 16 gm Bottle NASAL SCH (09:05)
[2018-04-17] MEDS: Timolol 0.5% Ophth Soln 5 ml Bottle EA EYE SCH ×2 (09:05→20:21)
[2018-04-17] MEDS: Floranex Packet PO SCH (09:06)
[2018-04-17] MEDS: Nystatin 500,000 UNITS/5 ML UDCUP SSW SCH ×4 (09:09→20:20)
[2018-04-17] MEDS: Sodium Chloride 1 GM TAB PO SCH (09:09)
[2018-04-17] MEDS: Docusate 100 MG CAP PO SCH ×2 (09:09→20:19)
[2018-04-17] MEDS: Levothyroxine Sodium 100 MCG TAB PO SCH (09:09)
[2018-04-17] MEDS: Apixaban 5 MG TAB PO SCH ×2 (09:09→20:19)
[2018-04-17] MEDS: levETIRAcetam 500 MG TAB PO SCH ×2 (09:09→20:20)
[2018-04-17] MEDS: guaiFENesin ER 600 MG TAB PO SCH ×2 (09:09→20:19)
[2018-04-17] MEDS: Famotidine 20 MG TAB PO SCH ×2 (09:10→20:19)
[2018-04-17] MEDS: Metoprolol Tartrate 25 MG TAB PO SCH ×2 (09:10→20:20)
--- NOTE | 2018-04-17 10:33 | PRG ---
DATE OF SERVICE: 04/17/2018 The patient is feeling better. PHYSICAL EXAMINATION: VITAL SIGNS: Temperature is 98, pulse 68, O2 sat 93%, blood pressure 175/93. HEENT: Unremarkable. NECK: No JVD. LUNGS: Fairly clear anteriorly. CARDIOVASCULAR: S1 and S2 regular. ABDOMEN: Soft. EXTREMITIES: No edema. LABORATORY DATA: White blood cell count 14.9, hematocrit 38, platelet count 372. Sodium 134, potass ium 4, chloride 100, CO2 28, BUN 26, creatinine 0.8, glucose 141. ASSESSMENT: Pneumonitis versus congestive heart failure - echo looks consistent with diastolic cardi ac dysfunction. RECOMMENDATIONS: She has been changed over to oral antibiotics, aside from the vancomycin. It shoul d be safe to stop the vancomycin given that nothing is growing from cultures. Go ahead and taper the steroids further.
[2018-04-17] MEDS ORDERED: Vancomycin HCl 1.75 GM in Sodium Chloride 0.9% 500 ML IVPB SCH (14:00)
--- NOTE | 2018-04-17 15:42 | PDOC.PN ---
- Subjective Encounter Start Date: 04/17/18 Encounter Start Time: 09:00 Pt seen and examined, son at bedside, updated to plan. Pt doing well, worked with PT earlier, no F/C, no N/V/D/C, no CP , some CASTELLANOS, global weakness. Pt wants to go back to [facility] with [facility], case discussed with case management. Arrangements being made for discharge tomorrow All systems reviewed and neg x as above - Objective Resuscitation Status: Resuscitation Status DNR:Do Not Resuscitate MAR Reviewed: Yes Vital Signs & Weight: Vital Signs (12 hours) Temp Pulse Pulse Pulse Resp BP BP 04/17/18 15:11 97.6 F 65 20 04/17/18 13:52 04/17/18 13:48 63 12 04/17/18 12:19 64 04/17/18 11:37 62 20 04/17/18 11:23 66 66 182/90 H 178/86 H 04/17/18 11:00 97.1 F L 67 20 04/17/18 08:38 04/17/18 08:00 98 F 68 20 04/17/18 07:30 98 F 68 20 BP BP Pulse Ox 04/17/18 15:11 172/75 H 94 L 04/17/18 13:52 94 L 04/17/18 13:48 04/17/18 12:19 177/95 H 04/17/18 11:37 178/86 H 04/17/18 11:23 04/17/18 11:00 197/94 H 95 04/17/18 08:38 93 L 04/17/18 08:00 92 L 04/17/18 07:30 175/93 H 92 L Weight Weight 195 lb 11.2 oz I&O: 04/16/18 04/17/18 04/18/18 06:59 06:59 06:59 Intake Total 1701 1641 360 Balance 1701 1641 360 Result Diagrams: 04/17/18 04:22 04/17/18 04:22 EKG Reviewed by me: Yes Phys Exam - Physical Examination HEENT: PERRLA, moist MMs, sclera anicteric, oral pharynx no lesions Neck: no nodes, no JVD, supple, full ROM Respiratory: no wheezing, no rales, no rhonchi, clear to auscultation bilateral Cardiovascular: RRR, no significant murmur, no rub Gastrointestinal: soft, non-tender, no distention, positive bowel sounds Musculoskeletal: pulses present, edema present Neurological: non-focal, normal sensation, moves all 4 limbs Lymphatic: no nodes Psychiatric: normal affect, A&O x 3 Skin: no rash, normal turgor, cap refill <2 seconds Dx/Plan (1) CAP (community acquired pneumonia) Code(s): J18.9 - PNEUMONIA, UNSPECIFIED ORGANISM Status: Acute Qualifiers: Laterality: right Lung location: lower lobe of lung Qualified Code(s): J18.1 - Lobar pneumonia, unspecified organism Comment: present on admission, improving, on levoflox, continue. pulm following. on po, anticipate d/c tomorrow. some component of fluid (2) Acute renal failure Status: Resolved Qualifiers: Acute renal failure type: unspecified Qualified Code(s): N17.9 - Acute kidney failure, unspecified Comment: resolved (3) Acute respiratory failure with hypoxia Code(s): J96.01 - ACUTE RESPIRATORY FAILURE WITH HYPOXIA Status: Acute Comment: wean O2 as tolerated (4) Atrial fibrillation with tachycardic ventricular rate Code(s): I48.91 - UNSPECIFIED ATRIAL FIBRILLATION Status: Acute Comment: rate controlled. stable. (5) Hyponatremia Code(s): E87.1 - HYPO-OSMOLALITY AND HYPONATREMIA Status: Resolved (6) Sepsis Code(s): A41.9 - SEPSIS, UNSPECIFIED ORGANISM Status: Resolved Qualifiers: Sepsis type: sepsis due to unspecified organism Qualified Code(s): A41.9 - Sepsis, unspecified organism Comment: present on admit, resolving, WBC normalizing, bands down (7) Anticoagulant long-term use Code(s): Z79.01 - [facility] [employer] (CURRENT) USE OF ANTICOAGULANTS Status: Chronic (8) HTN (hypertension) Code(s): I10 - ESSENTIAL (PRIMARY) HYPERTENSION Status: Chronic Qualifiers: Hypertension type: essential hypertension Qualified Code(s): I10 - Essential (primary) hypertension (9) Physical deconditioning Code(s): R53.81 - OTHER MALAISE Status: Acute Comment: PT/OT. will need SNF - Plan cont current plan of care, plan discussed w/ family, continue antibiotics, PT/OT , social organization professor, respiratory therapy * . anticipate d/C tomorrow to [facility] for PT/OT
[2018-04-17] MEDS: traMADol HCl 50 MG TAB PO PRN (20:20)
[2018-04-18 05:08] LABS: #Eosinphils 0.1 thou/uL (0.0-0.7); #Lymphocytes 4.4 thou/uL (1.20-3.40); #Monocytes 1.5 thou/uL (0.11-0.59); #Neutrophils 10.4 thou/uL (1.40-6.50); %Basophils 0.2 % (0.0-1.0); %Eosinophils 0.8 % (0.0-10.0); %Lymphocytes 26.8 % (21.0-51.0); %Monocytes 9.2 % (0.0-10.0); %Neutrophils 62.9 % (42.0-75.0); Hemoglobin 13.8 g/dL (12.0-16.0); Mean Corpuscular HGB CONC 31.6 g/dL (32.0-36.0); Mean Corpuscular Hemoglobin 31.1 pg (27.0-31.0); Mean Corpuscular Volume 98.4 fl (81.0-99.0); Platelet Count 358 thou/uL (130-400); RBC Distribution Width 12.7 % (11.5-14.5); Red Blood Cell (RBC) Count 4.43 mill/uL (4.20-5.40); White Blood Cell (WBC) Count 16.5 thou/uL (4.8-10.8)
[2018-04-18 05:19] LABS: Anion Gap 13 mmol/L (10-20); BUN (Urea Nitrogen) 27 mg/dL (9.8-20.1); Calc. Creatinine Clearance 72 mL/min (70-130); Calcium 8.8 mg/dL (7.8-10.44); Carbon Dioxide 25 mmol/L (23-31); Chloride 101 mmol/L (98-107); Estimated GFR-MDRD 66; Glucose 83 mg/dL (83-110); Magnesium 2.1 mg/dL (1.6-2.6); Sodium 135 mmol/L (136-145)
[2018-04-18] MEDS ORDERED: Levothyroxine Sodium 100 MCG TAB PO SCH (06:00)
[2018-04-18] MEDS ORDERED: Bisacodyl 5 MG TAB PO PRN (07:11)
[2018-04-18] MEDS ORDERED: Acetaminophen 500 MG TAB PO PRN (07:42)
[2018-04-18] MEDS ORDERED: diphenhydrAMINE 25 MG CAP PO PRN (07:43)
[2018-04-18] MEDS ORDERED: Tetrahydrozoline 0.05% OPTH 15 ML BOT EA EYE PRN (08:00)
[2018-04-18] MEDS ORDERED: predniSONE 20 MG TAB PO SCH (09:00)
[2018-04-18] MEDS ORDERED: cycloSPORINE 0.05% Ophthalmic Droperette EA EYE SCH (09:00)
[2018-04-18] MEDS ORDERED: Loratadine 10 MG TAB PO SCH (09:00)
[2018-04-18] MEDS ORDERED: Artificial Tears 18 DROP/0.9 ML EA EYE SCH (09:00)
[2018-04-18] MEDS ORDERED: Lisinopril 10 MG TAB PO SCH (09:00)
[2018-04-18] MEDS: Floranex Packet PO SCH (09:22)
[2018-04-18] MEDS: Nystatin 500,000 UNITS/5 ML UDCUP SSW SCH ×2 (09:22→12:24)
[2018-04-18] MEDS: Timolol 0.5% Ophth Soln 5 ml Bottle EA EYE SCH (09:22)
[2018-04-18] MEDS: Fluticasone Propionate Nasal Spray 16 gm Bottle NASAL SCH (09:22)
[2018-04-18] MEDS: Sodium Chloride 1 GM TAB PO SCH (09:24)
[2018-04-18] MEDS: guaiFENesin ER 600 MG TAB PO SCH (09:24)
[2018-04-18] MEDS: Metoprolol Tartrate 25 MG TAB PO SCH (09:24)
[2018-04-18] MEDS: Apixaban 5 MG TAB PO SCH (09:24)
[2018-04-18] MEDS: Famotidine 20 MG TAB PO SCH (09:24)
[2018-04-18] MEDS: levETIRAcetam 500 MG TAB PO SCH (09:24)
[2018-04-18] MEDS: Docusate 100 MG CAP PO SCH (09:25)
[2018-04-18 11:42] VITALS: BP 144/67; TEMP 97.4
--- NOTE | 2018-04-18 12:32 | DIS ---
DATE OF ADMISSION: 04/11/2018 DATE OF DISCHARGE: 04/18/2018 PRIMARY CARE PHYSICIAN: Dr. Anastacio Flynn. DISCHARGE DIAGNOSES: 1. Acute hypoxemic respiratory failure. 2. Paroxysmal atrial fibrillation, new onset with rapid ventricular response. 3. Pneumonitis versus congestive heart failure. 4. Acute on chronic diastolic congestive heart failure, present on admission. 5. Community-acquired pneumonia. 6. Physical deconditioning. 7. History of brain tumor, status post resection. 8. Bilateral lower extremity weakness, chronic and nonambulatory. 9. Chronic anticoagulation, on Eliquis. 10. Sepsis, present on admission and resolved. 11. Acute kidney injury, resolved, present on admission. 12. Essential hypertension. CONSULTATIONS: Pulmonary Critical Care, Dr. Gideon Montes, 04/14/2018. PROCEDURES: Echocardiogram, 04/16/2018, that showed EF of 60%-65%, mild LVH, RVSP 30 consistent with [id number] pulmonary hypertension, mild mitral regurgitation, structurally normal aortic valve , and mild TR. HISTORY AND PHYSICAL: Ms. Pham is an 82-year-old female with history of lower extremity weakness an d obesity; atrial fibrillation, on Eliquis; hypertension; hypothyroidism; and a remote history of cer ebral vascular disease and stroke; who presents to the emergency department after feeling bad for the last 4-5 days. She relates a history, ongoing longer than that, of increasing weakness over time and just decreased exercise tolerance. Just prior to admission, she had a cough that had been progressive, and was now productive of yellow sputum. She had worsening fatigue and body aches and presented to the emergency department. There, she was found to be tachycardic and in atrial fibrillation and oxygen saturation was 92% on room air. Chest x-ray showed bibasilar infiltrates and she was tachypneic. She met seps is criteria and was given 30 mL bolus per kilogram of normal saline and some Levaquin and oxygen was placed and we were called for admission. The patient was seen and examined by Dr. Youssef and placed in inpatient status. He continued her on L evaquin, supplemental oxygen, treatment per sepsis protocol and continued her Eliquis. He felt her i ncreased creatinine was secondary to prerenal azotemia and recommended stopping her ÓSCAR inhibitor. Overnight, 04/11-04/12, Dr. Diane took the case over. Patient was feeling "miserable" and was feelin g weak and short of breath. The patient was continued on IV Levaquin and a beta-yenifer was restarte d and p.r.n. nebulizer treatments. Later that day, patient was made DNR after discussion with the so n. By 04/13/2018, patient was having mild cough with minimal shortness of breath. She has been on suppl emental oxygen, respiratory treatments. Continued Eliquis and metoprolol. Also, continued on IV lev ofloxacin. Overall, her numbers were improving. Creatinine was back to normal at 0.82. White count was stable at 14.6, on steroids. By 04/14/2018, was more of the same. Pulmonary was consulted. Recommended adding meropenem, which w as done. An ABG was done, which was fairly normal. She was seen later that day by Dr. Montes, who agreed with the plan. He recommended extending her a ntibiotic spectrum and nystatin for thrush and giving her a small dose of Lasix intravenously. On 04/15/2018, the patient was continued on broad antibiotics. Echocardiogram was ordered. A chest x-ray was repeated and it was slightly better. That afternoon, a chest x-ray showed a left lower lob e infiltrate that was new. On 04/16/2018, I took the case over. X-ray that morning was actually improved from the prior. She w as continued on antibiotics and echocardiogram showed some diastolic dysfunction and pulmonary hypert ension. Dr. Montes felt this could be a combination of pneumonia and acute on chronic diastolic con gestive heart failure. She was diuresed adequately and was breathing much better and weaned off oxyg en. By 04/17/2018, she was improved. She was finally working with physical therapy instead of refusing. She is able to stand for a moment, but sit up on the side of the bed for certain and to work on her arms. She chose the [facility] and arrangements were made for her to go back to her assisted living center with home health care and physical therapy as she refused to go anywhere else . Today, she is feeling better, labs were improved, and she was stable for discharge with outpatient [facility] and physical therapy at home. PHYSICAL EXAMINATION: Patient was seen and examined on the day of discharge. Discharge plan and dis position were discussed with the patient [id number] at the bedside. DISCHARGE MEDICATIONS: 1. Tylenol 500 mg q.6 hours p.r.n. 2. Eliquis 5 mg p.o. b.i.d. 3. Bisacodyl 10 mg p.o. daily. 4. Benadryl 25 mg p.o. at bedtime p.r.n. insomnia. 5. Allyn 180 mg p.o. daily. 6. Guaifenesin 600 mg p.o. q.12 hours. 7. DuoNeb 3 mL nebulized q.6 hours scheduled, shortness of breath. 8. Acidophilus 2 capsules daily. 9. Keppra 500 mg p.o. b.i.d. 10. Levothyroxine 100 mcg daily. 11. Lisinopril 10 mg daily. 12. Metoprolol tartrate 25 mg p.o. b.i.d. 13. Visine-A eye drops 1 drop to each eye q.i.d. p.r.n. dry eyes. 14. Povidone 1 drop each eye t.i.d. 15. Restasis 1 drop each eye b.i.d. 16. Timoptic 0.5% 1 drop each eye b.i.d. 17. Calcium carbonate 1000 mg t.i.d. with meals. There is cranberry fruit concentrate to continue f or home dosing. 18. Flonase 2 sprays each naris at bedtime. 19. Imodium 2 mg p.o. q.6 hours p.r.n. diarrhea. 20. Melatonin as needed for sleep. 21. Sodium chloride 1 gram daily. 22. Terbinafine 12 grams tube 1 application topically daily to toenails of both feet for 8 weeks. 23. Tramadol 50 mg p.o. t.i.d. p.r.n. moderate pain. FOLLOWUP APPOINTMENTS: 1. Primary care physician within a week. 2. Dr. Montes's office in 2-3 weeks, if he feels necessary. DISCHARGE ACTIVITY: Per cardiopulmonary limits. DISCHARGE DIET: Heart healthy recommended. DISCHARGE CONDITION: Stable. DISPOSITION: Being discharged to [facility] as before with home health ca re per [facility] for physical therapy and occupational therapy. The patient to be transpo rted via a private vehicle.
== END 2018-04-18 13:54 | disposition home health service (06) | DRG 871 ==
LOC: ERS 14:24 → 2NO 20:17
PROVIDERS: ADMIT Emergency Medicine; ATTEND Emergency Medicine
DX: A41.9 Sepsis, unspecified organism (principal); J18.9 Pneumonia, unspecified organism; J96.01 Acute respiratory failure with hypoxia; I50.33 Acute on chronic diastolic (congestive) heart failure; N17.9 Acute kidney failure, unspecified; E87.1 Hypo-osmolality and hyponatremia; E03.9 Hypothyroidism, unspecified; I48.2 Chronic atrial fibrillation; I69.398 Other sequelae of cerebral infarction; Z86.011 Personal history of benign neoplasm of the brain; Z88.0 Allergy status to penicillin; Z88.2 Allergy status to sulfonamides; Z88.1 Allergy status to other antibiotic agents; Z88.5 Allergy status to narcotic agent; Z79.899 Other long term (current) drug therapy; Z79.01 Long term (current) use of anticoagulants; Z79.51 Long term (current) use of inhaled steroids; I11.0 Hypertensive heart disease with heart failure; R53.81 Other malaise
CPT/HCPCS: 36415; 71045; 80048; 80053; 80202; 82550; 82553; 82565; 82805; 83605; 83735; 83880; 84484; 85014; 85018; 85025; 85049; 87040; 90471; 90670; 93005; 93306; 94640; 96360; 96361; 96365; A4216; G0009; G8978-GP-CM; G8979-GP-CK; G8987-GO-CL; G8988-GO-CL; G8989-GO-CL; J1940; J1956; J2185; J2920; J3370; J7050; J7506; J7620

== ENCOUNTER 2020-06-18 10:12 | Outpatient (CLI) | payer MEDICARE, BC ==
--- NOTE | 2020-06-18 11:40 | CT ---
CT abdomen and pelvis noncontrast HISTORY: Right flank pain. FINDINGS: Each renal collecting system, ureter, and urinary bladder are decompressed without stone ev ident. Oral contrast was administered and is seen within the distal esophagus. Parenchymal scarring, tubular bronchiectasis, and small nonspecific subpleural nodules are present at each lung base. Metallic electronic device is present at the right para midline posterior subcutaneous tissues at the level of L2. Metallic leads extend through the right S3 neural foramen and terminate immediately anterior to the right side of the sacrum. Multiple cysts arise from the cortex of the kidneys. The largest on the right is an exophytic cyst at the inferior pole measuring 4.7 cm greatest diameter. A 1.3 cm hyperdense cyst is also present at the anterior mid cortex. No evidence of bowel obstruction. Lack of contrast limits evaluation of the soft tissues. There is calcification throughout the arteria l structures. Degenerative changes throughout the lumbar spine. Mild chronic appearing compression of the T12 super ior endplate. IMPRESSION : No CT evidence of urinary tract obstruction or calcification. No evidence of complication associated with the sacral stimulator electronic device at the right post erior subcutaneous tissues. Gastroesophageal reflux. Findings of chronic/recurrent infection at the lung bases. Multiple cysts.
== END 2020-06-18 10:13 | disposition home or self-care (01) ==
LOC: BICCT 10:12
PROVIDERS: ATTEND Family Medicine
DX: R19.00 Intra-abdominal and pelvic swelling, mass and lump, unspecified site (principal); K21.9 Gastro-esophageal reflux disease without esophagitis; N28.1 Cyst of kidney, acquired; Z96.82 Presence of neurostimulator
CPT/HCPCS: 74176